=== PATIENT | male | born 1955 | race Native Hawaiian/Other Pacific Islander ===

== ENCOUNTER 2022-10-31 09:52 | Emergency (ER) | payer OTHER, MEDICARE ==
[~2022-10-31] VITALS: Ht 177.8 cm; Wt 83.5 kg
[2022-10-31 09:55] VITALS: TEMP 98.2
[2022-10-31 10:44] LABS: PLATELET COUNT 217 K/uL (142-355)
[2022-10-31 10:53] LABS: POTASSIUM 4.2 mmol/L (3.6-5.2)
[2022-10-31 12:16] VITALS: BP 164/65
== END 2022-10-31 13:15 | disposition home or self-care (01) ==
LOC: ED 09:52
PROVIDERS: Emergency Medicine Emergency Medical Services
DX: J44.1 Chronic obstructive pulmonary disease with (acute) exacerbation (principal); I10 Essential (primary) hypertension; F17.210 Nicotine dependence, cigarettes, uncomplicated; Z20.822 Contact with and (suspected) exposure to COVID-19
CPT/HCPCS: 36415; 80053; 84484; 85027; 85379; 85610; 87502; 87635; 94664; 96361; 96365; 99284; J0696; Q9963; U0001

== ENCOUNTER 2022-11-22 06:26 | Outpatient (CLI) | payer OTHER, MEDICARE ==
[2022-11-22 06:54] LABS: PLATELET COUNT 216 K/uL (142-355)
[2022-11-22 07:40] LABS: POTASSIUM 4.7 mmol/L (3.6-5.2)
== END 2022-11-22 18:55 | disposition home or self-care (01) ==
LOC: LABW 06:26
PROVIDERS: ATTEND Internal Medicine
DX: I10 Essential (primary) hypertension (principal); Z12.5 Encounter for screening for malignant neoplasm of prostate; Z79.899 Other long term (current) drug therapy
CPT/HCPCS: 36415; 80053; 80061; 81002; 83735; 84153; 84439; 84443; 85027

== ENCOUNTER 2023-01-23 13:33 | Outpatient (CLI) | payer OTHER, MEDICARE | END 2023-01-23 20:50 | disposition home or self-care (01) | LOC: LAB 13:33 | PROVIDERS: ATTEND Internal Medicine | DX: E78.2 Mixed hyperlipidemia (principal); R94.6 Abnormal results of thyroid function studies | CPT/HCPCS: 80061; 84439; 84443 ==

== ENCOUNTER 2023-02-27 10:57 | Outpatient (CLI) | payer OTHER, MEDICARE | END 2023-02-27 21:26 | disposition home or self-care (01) | LOC: RAD 10:57 | PROVIDERS: ATTEND Nurse Practitioner Family | DX: R13.12 Dysphagia, oropharyngeal phase (principal) ==

== ENCOUNTER 2023-03-08 10:24 | Outpatient (CLI) | payer OTHER, MEDICARE | END 2023-03-08 21:20 | disposition home or self-care (01) | LOC: RAD 10:24 | PROVIDERS: ATTEND Nurse Practitioner Family | DX: R13.12 Dysphagia, oropharyngeal phase (principal) ==